=== PATIENT | male | born 1955 | race Caucasian/White ===

== ENCOUNTER 2021-02-23 13:31 | Inpatient (IN) ==
[2021-02-23 14:14] LABS: Basophils # 0.1 10*3/uL (0.0-0.2); Basophils % 0.4 % (0.0-0.8); Eosinophils # 0.1 10*3/uL (0.0-0.87); Eosinophils % 0.8 % (0.00-10.9); Hematocrit 22.3 VOL% (42.0-52.0); Hemoglobin 7.6 GM/DL (14.0-18.0); Immature Granulocytes Absolute 0.12 #; Lymphocytes # 1.5 10*3/uL (1.4-4.0); Lymphocytes % 13.1 % (21.2-54.2); Mean Corpuscular HGB Conc 34.1 GM/DL (32-36); Mean Corpuscular Volume 90.7 FL (87-102); Mean Platelet Volume 9.8 FL (9.6-12.0); Monocytes % 12.9 % (1.7-12.7); NRBC # 0.43 10*3/uL; Neutrophils % 71.8 % (38.7-73.9); Platelet Count 266 T/CUMM (130-400); Red Blood Count 2.46 MC/CUMM (3.8-5.5); White Blood Count 11.6 T/CUMM (4-12)
[2021-02-23] MEDS ORDERED: SODIUM CHLORIDE 0.9% 1,000 ML IV STA ×2 (14:19→16:38)
[2021-02-23 14:30] LABS: Calcium 7.7 MG/DL (8.5-10.1); Osmolality,Calculated 255.8 MOS/KG (273-304)
[2021-02-23 14:32] LABS: Potassium 1.8 MMOL/L (3.5-5.1)
[2021-02-23] MEDS ORDERED: POTASSIUM CHLORIDE RIDER 20 MEQ/100 ML PREMIX IV STA (14:35)
[2021-02-23] MEDS ORDERED: POTASSIUM BICARB EFFERVESCENT 20 MEQ TAB.EFF PO ONE (14:36)
[2021-02-23 14:38] LABS: Band Neutrophils 1 % (0-10); Lymphocytes 13 % (20-55); Nucleated Red Blood Cells 7 (0-5); Platelet Estimate Normal; Polychromasia Few; Segmented Neutrophils 81 % (50-85); Target Cells 1+; Total Cells Counted 100
[2021-02-23 14:39] LABS: Anisocytosis 2+; Macrocytosis 2+; Microcytosis 2+
[2021-02-23] MEDS ORDERED: MAGNESIUM SULF RIDER 1 GM/100 ML PREMIX IV STA (14:54)
[2021-02-23] MEDS ORDERED: THIAMINE 200 MG/2 ML VIAL IV STA (14:54)
[2021-02-23] MEDS ORDERED: SODIUM CHLORIDE 0.9% 1,000 ML IV PRN (15:10)
[2021-02-23] MEDS: POTASSIUM CHLORIDE RIDER 10 MEQ/100 ML PREMIX IV SCH ×2 (15:31→16:37)
[2021-02-23] MEDS ORDERED: POTASSIUM CHLORIDE 20 MEQ TABLET PO ONE ×2 (15:38→21:00)
[2021-02-23] MEDS ORDERED: ONDANSETRON 4 MG/2 ML VIAL IV PRN (15:40)
[2021-02-23] MEDS ORDERED: LORazepam 2 MG/1 ML VIAL IV PRN (15:45)
[2021-02-23] MEDS ORDERED: DICYCLOMINE 10 MG CAPSULE PO PRN (15:45)
[2021-02-23] MEDS ORDERED: MAGNESIUM SULF RIDER 4 GM/100 ML PREMIX IV PRN (15:48)
[2021-02-23] MEDS ORDERED: MAGNESIUM SULF RIDER 2 GM/50 ML PREMIX IV PRN (15:48)
[2021-02-23] MEDS ORDERED: POTASSIUM CHLORIDE RIDER 10 MEQ/100 ML PREMIX IV PRN (15:48)
[2021-02-23 15:53] LABS: INR 1.1; PT Patient Result 11.9 SECS (10.5-12.0)
[2021-02-23] MEDS ORDERED: MAGNESIUM SULF RIDER 4 GM/100 ML PREMIX IV ONE (16:30)
[2021-02-23] MEDS ORDERED: THIAMINE INJ 100 MG, FOLIC ACID INJ 1 MG, MULTIVITAMIN INJ 10 ML in SODIUM CHLORIDE 0.9... IV ONE (16:30)
[2021-02-23 16:47] LABS: Bilirubin,Urine Negative (Negative); Blood, Urine Negative (Negative); Glucose,Urine (UA) Negative (Negative); Ketones,Urine 5 mg/dL (Negative); Nitrite,Urine Negative (Negative); Protein,Urine Negative; RBC,Urine 1 /HPF (0-4); Squamous Epithelial Cell,Urine Occasional /HPF (0-10); Urine Appearance CLEAR (Clear); Urine Color Yellow (Yellow); Urine Specific Gravity 1.012 (1.001-1.035)
[2021-02-23] MEDS: chlordiazePOXIDE 25 MG CAPSULE PO SCH ×2 (17:19→21:04)
[2021-02-23] MEDS: LACTATED RINGERS 1,000 ML IV SCH (18:06)
[2021-02-23] MEDS: PANTOPRAZOLE 40 MG TABLET PO SCH (21:03)
[2021-02-23 21:27] LABS: Sodium 129 MMOL/L (136-145)
[2021-02-23 21:29] LABS: Calcium 7.8 MG/DL (8.5-10.1)
[2021-02-23 21:31] LABS: Albumin 2.5 G/DL (3.4-5.0); Blood Urea Nitrogen 5 MG/DL (7-18); Carbon Dioxide 27 MMOL/L (21-32)
[2021-02-23 21:32] LABS: Glucose 77 MG/DL (74-106); Osmolality,Calculated 253.9 MOS/KG (273-304)
[2021-02-23 21:33] LABS: Alanine Aminotransferase 32 U/L (16-61); Estimated Glom Filtration Rate 133 ML/MIN
[2021-02-23 21:35] LABS: Aspartate Amino Transferase 80 U/L (0-37)
[2021-02-23 21:36] LABS: Alkaline Phosphatase 101 U/L (45-117)
[2021-02-23 21:43] LABS: Potassium 1.8 MMOL/L (3.5-5.1)
[2021-02-24] MEDS: LACTATED RINGERS 1,000 ML IV SCH ×5 (00:20→20:10)
[2021-02-24] MEDS: chlordiazePOXIDE 25 MG CAPSULE PO SCH ×3 (03:50→15:43)
[2021-02-24 04:29] LABS: Basophils % 0.3 % (0.0-0.8); Eosinophils # 0.1 10*3/uL (0.0-0.87); Eosinophils % 0.7 % (0.00-10.9); Immature Granulocytes % 0.8 %; Immature Granulocytes Absolute 0.08 #; Lymphocytes # 1.4 10*3/uL (1.4-4.0); Lymphocytes % 14.7 % (21.2-54.2); Mean Corpuscular HGB Conc 33.9 GM/DL (32-36); Mean Corpuscular Volume 89.5 FL (87-102); Mean Platelet Volume 9.6 FL (9.6-12.0); Monocytes % 12.8 % (1.7-12.7); NRBC # 0.29 10*3/uL; Neutrophils % 70.7 % (38.7-73.9); Platelet Count 256 T/CUMM (130-400); Red Cell Distribution Width 19.5 % (9.3-17.3); White Blood Count 9.8 T/CUMM (4-12)
[2021-02-24 04:40] LABS: Red Blood Count 3.13 MC/CUMM (3.8-5.5)
[2021-02-24 04:41] LABS: Hemoglobin 9.5 GM/DL (14.0-18.0)
[2021-02-24 04:44] LABS: Albumin 2.6 G/DL (3.4-5.0); Bilirubin,Total 3.2 MG/DL (0.2-1.0); Calcium 7.8 MG/DL (8.5-10.1); Osmolality,Calculated 262.4 MOS/KG (273-304); Total Protein 5.8 G/DL (6.4-8.2)
[2021-02-24 04:56] LABS: Potassium 2.5 MMOL/L (3.5-5.1)
[2021-02-24] MEDS: POTASSIUM CHLORIDE 20 MEQ TABLET PO PRN ×7 (05:19→22:30)
[2021-02-24] MEDS ORDERED: PNEUMOCOCCAL VACCINE (13 VALENT) 0.5 ML SYRINGE IM ONE (09:00)
[2021-02-24] MEDS ORDERED: POTASSIUM PHOSPHATE 40 MMOL in SODIUM CHLORIDE 0.9% 250 ML IV ONE (09:00)
[2021-02-24] MEDS: HYDROCORTISONE 100 MG VIAL IV SCH ×2 (09:19→15:43)
[2021-02-24] MEDS: PANTOPRAZOLE 40 MG TABLET PO SCH ×2 (09:19→20:41)
[2021-02-24] MEDS: HydrOXYzine PAMOATE 25 MG CAPSULE PO PRN ×2 (09:20→20:38)
[2021-02-24] MEDS ORDERED: SKIN HEALING OINT (AQUAPHOR) 50 GM TUBE TOP PRN (12:38)
[2021-02-24] MEDS: MENTHOL/ZINC OXIDE OINT 71 GM JAR TOP SCH ×2 (16:23→20:39)
[2021-02-24] MEDS: FLUTICASONE 50 MCG NASAL SPRAY 16 GM BOTTLE BOTH NARES SCH (20:41)
[2021-02-24] MEDS: NICOTINE 14 MG/24 HR PATCH TRANSDERM SCH (21:31)
[2021-02-25] MEDS: POTASSIUM CHLORIDE 20 MEQ TABLET PO PRN ×2 (00:11→14:52)
[2021-02-25] MEDS: HYDROCORTISONE 100 MG VIAL IV SCH ×4 (00:12→23:31)
[2021-02-25] MEDS: chlordiazePOXIDE 25 MG CAPSULE PO SCH ×4 (00:12→23:33)
[2021-02-25 05:58] LABS: Basophils % 0.1 % (0.0-0.8); Hematocrit 26.3 VOL% (42.0-52.0); Hemoglobin 8.8 GM/DL (14.0-18.0); Immature Granulocytes % 1.4 %; Immature Granulocytes Absolute 0.12 #; Lymphocytes # 0.8 10*3/uL (1.4-4.0); Lymphocytes % 9.4 % (21.2-54.2); Mean Corpuscular HGB Conc 33.5 GM/DL (32-36); Mean Corpuscular Volume 90.4 FL (87-102); Mean Platelet Volume 9.5 FL (9.6-12.0); Monocytes % 10.4 % (1.7-12.7); Neutrophils % 78.7 % (38.7-73.9); Platelet Count 267 T/CUMM (130-400); Red Blood Count 2.91 MC/CUMM (3.8-5.5); Red Cell Distribution Width 20.5 % (9.3-17.3); White Blood Count 8.6 T/CUMM (4-12)
[2021-02-25] MEDS: LACTATED RINGERS 1,000 ML IV SCH ×4 (06:10→18:17)
[2021-02-25 06:40] LABS: Albumin 2.4 G/DL (3.4-5.0); Bilirubin,Total 1.2 MG/DL (0.2-1.0); Calcium 7.4 MG/DL (8.5-10.1); Osmolality,Calculated 272.8 MOS/KG (273-304); Potassium 3.3 MMOL/L (3.5-5.1); Total Protein 5.7 G/DL (6.4-8.2)
[2021-02-25] MEDS: FLUTICASONE 50 MCG NASAL SPRAY 16 GM BOTTLE BOTH NARES SCH ×2 (09:25→20:23)
[2021-02-25] MEDS: NICOTINE 14 MG/24 HR PATCH TRANSDERM SCH (09:26)
[2021-02-25] MEDS: MENTHOL/ZINC OXIDE OINT 71 GM JAR TOP SCH ×2 (09:30→20:23)
[2021-02-25] MEDS: PANTOPRAZOLE 40 MG TABLET PO SCH ×2 (09:30→20:23)
[2021-02-25] MEDS: LACTULOSE 20 GM/30 ML UDCUP PO SCH ×2 (10:02→20:23)
[2021-02-25] MEDS ORDERED: POTASSIUM PHOSPHATE 40 MMOL in SODIUM CHLORIDE 0.9% 250 ML IV ONE (11:00)
[2021-02-25] MEDS ORDERED: ETOMIDATE 20 MG/10 ML VIAL IV ONE (14:17)
[2021-02-25] MEDS ORDERED: propofoL 200 MG/20 ML VIAL IV ONE (14:17)
[2021-02-25] MEDS ORDERED: LIDOCAINE 2% 5 ML VIAL ONE (14:17)
[2021-02-25] MEDS: TAMSULOSIN 0.4 MG CAPSULE PO SCH (14:51)
[2021-02-25] MEDS: POTASSIUM CHLORIDE 20 MEQ/15 ML UDCUP PER TUBE PRN (14:52)
[2021-02-25] MEDS: ERGOCALCIFEROL 50,000 UNIT CAPSULE PO SCH (16:56)
[2021-02-26] MEDS: LACTATED RINGERS 1,000 ML IV SCH ×2 (00:31→09:59)
[2021-02-26 04:52] LABS: Basophils % 0.1 % (0.0-0.8); Hematocrit 26.7 VOL% (42.0-52.0); Hemoglobin 8.6 GM/DL (14.0-18.0); Immature Granulocytes % 1.6 %; Immature Granulocytes Absolute 0.13 #; Lymphocytes # 0.9 10*3/uL (1.4-4.0); Lymphocytes % 10.6 % (21.2-54.2); Mean Corpuscular HGB Conc 32.2 GM/DL (32-36); Mean Platelet Volume 9.6 FL (9.6-12.0); Monocytes % 11.3 % (1.7-12.7); NRBC # 0.07 10*3/uL; Neutrophils % 76.4 % (38.7-73.9); Platelet Count 292 T/CUMM (130-400); Red Blood Count 2.87 MC/CUMM (3.8-5.5); Red Cell Distribution Width 21.2 % (9.3-17.3); White Blood Count 8.3 T/CUMM (4-12)
[2021-02-26 05:06] LABS: Albumin 2.4 G/DL (3.4-5.0); Bilirubin,Total 1.1 MG/DL (0.2-1.0); Calcium 7.6 MG/DL (8.5-10.1); Osmolality,Calculated 277.4 MOS/KG (273-304); Potassium 3.7 MMOL/L (3.5-5.1); Total Protein 5.7 G/DL (6.4-8.2)
[2021-02-26] MEDS: FOLIC ACID 1 MG TABLET PO SCH (08:55)
[2021-02-26] MEDS: PANTOPRAZOLE 40 MG TABLET PO SCH (08:55)
[2021-02-26] MEDS: THIAMINE 100 MG TABLET PO SCH (08:55)
[2021-02-26] MEDS: MENTHOL/ZINC OXIDE OINT 71 GM JAR TOP SCH ×2 (08:55→20:18)
[2021-02-26] MEDS: TAMSULOSIN 0.4 MG CAPSULE PO SCH (08:55)
[2021-02-26] MEDS: LACTULOSE 20 GM/30 ML UDCUP PO SCH ×2 (08:55→20:18)
[2021-02-26] MEDS: MULTIVITAMIN (BEROCCA) TABLET PO SCH (08:55)
[2021-02-26] MEDS: NICOTINE 14 MG/24 HR PATCH TRANSDERM SCH (08:55)
[2021-02-26] MEDS: FLUTICASONE 50 MCG NASAL SPRAY 16 GM BOTTLE BOTH NARES SCH ×2 (08:55→20:18)
[2021-02-26] MEDS: chlordiazePOXIDE 25 MG CAPSULE PO SCH (08:55)
[2021-02-27 05:01] LABS: Basophils % 0.3 % (0.0-0.8); Eosinophils % 0.7 % (0.00-10.9); Hemoglobin 9.2 GM/DL (14.0-18.0); Immature Granulocytes % 0.7 %; Immature Granulocytes Absolute 0.04 #; Lymphocytes # 1.3 10*3/uL (1.4-4.0); Mean Corpuscular HGB Conc 32.9 GM/DL (32-36); Mean Platelet Volume 9.5 FL (9.6-12.0); Monocytes % 11.6 % (1.7-12.7); NRBC # 0.02 10*3/uL; Neutrophils % 65.7 % (38.7-73.9); Platelet Count 266 T/CUMM (130-400); Red Blood Count 3.01 MC/CUMM (3.8-5.5); Red Cell Distribution Width 22.1 % (9.3-17.3)
[2021-02-27 05:23] LABS: Albumin 2.3 G/DL (3.4-5.0); Calcium 7.8 MG/DL (8.5-10.1); Osmolality,Calculated 277.3 MOS/KG (273-304); Potassium 3.1 MMOL/L (3.5-5.1); Total Protein 5.2 G/DL (6.4-8.2)
[2021-02-27] MEDS: POTASSIUM CHLORIDE 20 MEQ TABLET PO PRN ×6 (06:42→23:04)
[2021-02-27] MEDS: TAMSULOSIN 0.4 MG CAPSULE PO SCH (09:14)
[2021-02-27] MEDS: FLUTICASONE 50 MCG NASAL SPRAY 16 GM BOTTLE BOTH NARES SCH ×2 (09:14→20:19)
[2021-02-27] MEDS: THIAMINE 100 MG TABLET PO SCH (09:14)
[2021-02-27] MEDS: FOLIC ACID 1 MG TABLET PO SCH (09:14)
[2021-02-27] MEDS: MENTHOL/ZINC OXIDE OINT 71 GM JAR TOP SCH ×2 (09:14→20:19)
[2021-02-27] MEDS: MULTIVITAMIN (BEROCCA) TABLET PO SCH (09:14)
[2021-02-27] MEDS: PANTOPRAZOLE 40 MG TABLET PO SCH (09:14)
[2021-02-27] MEDS: LACTULOSE 20 GM/30 ML UDCUP PO SCH ×3 (09:15→20:19)
[2021-02-27] MEDS: NICOTINE 14 MG/24 HR PATCH TRANSDERM SCH (09:18)
[2021-02-27] MEDS ORDERED: POLYETHYLENE GLYCOL POWDER 255 GM BOTTLE PO ONE (15:00)
[2021-02-28] MEDS: POTASSIUM CHLORIDE 20 MEQ TABLET PO PRN ×2 (01:23→03:07)
[2021-02-28] MEDS ORDERED: MAGNESIUM CITRATE 300 ML BOTTLE PO ONE (06:00)
[2021-02-28 06:48] LABS: Basophils % 0.3 % (0.0-0.8); Eosinophils # 0.1 10*3/uL (0.0-0.87); Eosinophils % 0.6 % (0.00-10.9); Hematocrit 30.3 VOL% (42.0-52.0); Hemoglobin 9.5 GM/DL (14.0-18.0); Immature Granulocytes % 0.7 %; Immature Granulocytes Absolute 0.06 #; Lymphocytes # 1.4 10*3/uL (1.4-4.0); Lymphocytes % 15.9 % (21.2-54.2); Mean Corpuscular HGB Conc 31.4 GM/DL (32-36); Mean Corpuscular Volume 96.8 FL (87-102); Mean Platelet Volume 9.5 FL (9.6-12.0); Monocytes % 8.7 % (1.7-12.7); Neutrophils % 73.8 % (38.7-73.9); Platelet Count 255 T/CUMM (130-400); Red Blood Count 3.13 MC/CUMM (3.8-5.5); Red Cell Distribution Width 22.6 % (9.3-17.3); White Blood Count 8.8 T/CUMM (4-12)
[2021-02-28 07:03] LABS: Calcium 7.9 MG/DL (8.5-10.1); Osmolality,Calculated 276.3 MOS/KG (273-304); Potassium 3.7 MMOL/L (3.5-5.1)
[2021-02-28 07:15] LABS: Albumin 2.1 G/DL (3.4-5.0); Osmolality,Calculated 277.3 MOS/KG (273-304); Total Protein 4.7 G/DL (6.4-8.2)
[2021-02-28] MEDS: PANTOPRAZOLE 40 MG TABLET PO SCH (09:00)
[2021-02-28] MEDS: THIAMINE 100 MG TABLET PO SCH (09:00)
[2021-02-28] MEDS: TAMSULOSIN 0.4 MG CAPSULE PO SCH (09:00)
[2021-02-28] MEDS: LACTULOSE 20 GM/30 ML UDCUP PO SCH ×3 (09:00→21:31)
[2021-02-28] MEDS: MULTIVITAMIN (BEROCCA) TABLET PO SCH (09:00)
[2021-02-28] MEDS: FOLIC ACID 1 MG TABLET PO SCH (09:00)
[2021-02-28] MEDS: NICOTINE 14 MG/24 HR PATCH TRANSDERM SCH (09:06)
[2021-02-28] MEDS: FLUTICASONE 50 MCG NASAL SPRAY 16 GM BOTTLE BOTH NARES SCH ×2 (09:08→21:31)
[2021-02-28] MEDS: MENTHOL/ZINC OXIDE OINT 71 GM JAR TOP SCH ×2 (09:09→21:31)
[2021-02-28] MEDS ORDERED: ALBUTEROL/IPRATROPIUM 3 ML NEB RESP TX ONE (15:28)
[2021-02-28] MEDS ORDERED: LIDOCAINE 2% 5 ML VIAL ONE (15:30)
[2021-02-28] MEDS ORDERED: ETOMIDATE 20 MG/10 ML VIAL IV ONE (15:30)
[2021-02-28] MEDS ORDERED: PHENYLEPHRINE 1 MG/10 ML SYRINGE IV ONE (15:30)
[2021-02-28] MEDS ORDERED: propofoL 200 MG/20 ML VIAL IV ONE (15:30)
[2021-02-28] MEDS ORDERED: methylPREDNISolone SOD SUC 125 MG/2 ML VIAL ONE (15:52)
[2021-02-28] MEDS ORDERED: cefTRIAXone 1,000 MG VIAL IM SCH (18:30)
[2021-02-28 18:51] LABS: ABG HCO3 25.2 MMOL/L (20-26); ABG Oxygen Saturation 49.2 % (95-100); ABG PCO2 48.7 MM HG (35-48); ABG PH 7.367 (7.35-7.45); ABG TCO2 25.5 MMOL/L (23-27)
[2021-02-28 18:55] LABS: ABG PO2 31.8 MM HG (80-95)
[2021-02-28 19:15] LABS: ABG HCO3 25.3 MMOL/L (20-26); ABG PCO2 41.6 MM HG (35-48); ABG PH 7.401 (7.35-7.45); ABG TCO2 23.1 MMOL/L (23-27); Allen Test Positive; Pt O2 Delivery Device Simple Mask
[2021-02-28] MEDS ORDERED: AZITHROMYCIN INJ 250 MG in SODIUM CHLORIDE 0.9% 250 ML IV SCH (20:00)
[2021-02-28] MEDS ORDERED: cefTRIAXone 1,000 MG in SODIUM CHLORIDE 0.9% 100 ML IV SCH (21:00)
[2021-03-01 04:40] LABS: Basophils % 0.1 % (0.0-0.8); Hematocrit 36.7 VOL% (42.0-52.0); Hemoglobin 11.4 GM/DL (14.0-18.0); Immature Granulocytes % 0.3 %; Immature Granulocytes Absolute 0.04 #; Lymphocytes # 0.6 10*3/uL (1.4-4.0); Mean Corpuscular HGB Conc 31.1 GM/DL (32-36); Mean Corpuscular Volume 98.9 FL (87-102); Mean Platelet Volume 9.7 FL (9.6-12.0); Monocytes % 5.1 % (1.7-12.7); Neutrophils % 89.5 % (38.7-73.9); Platelet Count 327 T/CUMM (130-400); Red Blood Count 3.71 MC/CUMM (3.8-5.5); Red Cell Distribution Width 22.5 % (9.3-17.3); White Blood Count 11.5 T/CUMM (4-12)
[2021-03-01 04:56] LABS: Albumin 2.3 G/DL (3.4-5.0); Calcium 8.3 MG/DL (8.5-10.1); Osmolality,Calculated 278.4 MOS/KG (273-304); Potassium 3.7 MMOL/L (3.5-5.1); Total Protein 5.8 G/DL (6.4-8.2)
[2021-03-01 05:06] LABS: Hypochromasia 1+; Microcytosis 1+
[2021-03-01 05:07] LABS: Platelet Estimate Normal; Target Cells Slight
[2021-03-01] MEDS ORDERED: SUCCINYLCHOLINE 200 MG/10 ML VIAL ONE (08:13)
[2021-03-01] MEDS ORDERED: ETOMIDATE 20 MG/10 ML VIAL IV ONE ×3 (08:13→08:19)
[2021-03-01] MEDS ORDERED: SUCCINYLCHOLINE 200 MG/10 ML VIAL IV ONE (08:20)
[2021-03-01] MEDS ORDERED: LACTATED RINGERS 500 ML IV ONE (08:35)
[2021-03-01] MEDS: NOREPINEPHRINE 8 MG in SODIUM CHLORIDE 0.9% 242 ML IV PRN ×4 (08:55→22:13)
[2021-03-01 09:10] LABS: ABG Base Excess 0.1 MMOL/L (-2.5-2.5); ABG HCO3 24.6 MMOL/L (20-26); ABG PCO2 48.5 MM HG (35-48); ABG PH 7.344 (7.35-7.45); ABG TCO2 23.6 MMOL/L (23-27); Allen Test Positive; Pt O2 Delivery Device Ventilator
[2021-03-01 09:14] LABS: Bilirubin,Urine Negative (Negative); Blood, Urine Small mg/dL (Negative); Glucose,Urine (UA) Negative (Negative); Hyaline Casts,Urine 11 /LPF (0-3); Ketones,Urine Negative (Negative); Mucus,Urine Occasional /LPF (Occasional); Nitrite,Urine Negative (Negative); Protein,Urine 30 MG/DL; RBC,Urine 6 /HPF (0-4); Sperm,Urine Many /HPF (Negative); Urine Appearance CLEAR (Clear); Urine Color Amber (Yellow); Urine Specific Gravity 1.014 (1.001-1.035); Urine Urobilinogen < 2.0 EU/DL (0.2-1.0)
[2021-03-01] MEDS: LACTATED RINGERS 1,000 ML IV SCH ×3 (09:30→19:37)
[2021-03-01] MEDS: LACTULOSE 20 GM/30 ML UDCUP PO SCH ×3 (10:35→21:24)
[2021-03-01] MEDS: MULTIVITAMIN (BEROCCA) TABLET PO SCH (10:35)
[2021-03-01] MEDS: TAMSULOSIN 0.4 MG CAPSULE PO SCH (10:35)
[2021-03-01] MEDS: MENTHOL/ZINC OXIDE OINT 71 GM JAR TOP SCH ×2 (10:35→21:32)
[2021-03-01] MEDS: FLUTICASONE 50 MCG NASAL SPRAY 16 GM BOTTLE BOTH NARES SCH ×2 (10:36→21:32)
[2021-03-01] MEDS: FOLIC ACID 1 MG TABLET PO SCH (10:36)
[2021-03-01] MEDS: NICOTINE 14 MG/24 HR PATCH TRANSDERM SCH (10:36)
[2021-03-01] MEDS: THIAMINE 100 MG TABLET PO SCH (10:36)
[2021-03-01] MEDS: PANTOPRAZOLE 40 MG TABLET PO SCH (10:36)
[2021-03-01] MEDS: PIPERACILLIN/TAZOBACTAM 3,375 MG in SODIUM CHLORIDE 0.9% 100 ML IV SCH ×2 (11:01→16:51)
[2021-03-01] MEDS: methylPREDNISolone SOD SUC 40 MG/1 ML VIAL IV SCH ×2 (15:35→21:24)
[2021-03-01] MEDS ORDERED: NOREPINEPHRINE 4 MG/4 ML VIAL IV ONE ×2 (16:39)
[2021-03-02] MEDS: PIPERACILLIN/TAZOBACTAM 3,375 MG in SODIUM CHLORIDE 0.9% 100 ML IV SCH ×3 (00:20→16:55)
[2021-03-02] MEDS: LACTATED RINGERS 1,000 ML IV SCH ×5 (00:20→19:23)
[2021-03-02] MEDS: NOREPINEPHRINE 8 MG in SODIUM CHLORIDE 0.9% 242 ML IV PRN ×3 (02:25→15:06)
[2021-03-02 02:48] LABS: ABG Base Excess 1.7 MMOL/L (-2.5-2.5); ABG Oxygen Saturation 99.9 % (95-100); ABG PCO2 41.2 MM HG (35-48); ABG PH 7.415 (7.35-7.45); ABG TCO2 23.7 MMOL/L (23-27); Allen Test Positive; Pt O2 Delivery Device Ventilator
[2021-03-02 05:23] LABS: Basophils % 0.3 % (0.0-0.8); Eosinophils % 0.2 % (0.00-10.9); Hemoglobin 11.6 GM/DL (14.0-18.0); Immature Granulocytes % 0.8 %; Immature Granulocytes Absolute 0.08 #; Lymphocytes # 0.4 10*3/uL (1.4-4.0); Lymphocytes % 4.4 % (21.2-54.2); Mean Corpuscular HGB Conc 31.4 GM/DL (32-36); Mean Corpuscular Volume 98.4 FL (87-102); Mean Platelet Volume 10.1 FL (9.6-12.0); Neutrophils % 89.3 % (38.7-73.9); Platelet Count 326 T/CUMM (130-400); Red Blood Count 3.76 MC/CUMM (3.8-5.5); Red Cell Distribution Width 22.1 % (9.3-17.3)
[2021-03-02 05:47] LABS: Band Neutrophils 8 % (0-10); Hypochromasia 1+; Lymphocytes 1 % (20-55); Microcytosis 1+; Platelet Estimate Adequate; Segmented Neutrophils 86 % (50-85); Total Cells Counted 100
[2021-03-02 05:58] LABS: Calcium 8.1 MG/DL (8.5-10.1); Osmolality,Calculated 285.1 MOS/KG (273-304); Potassium 4.2 MMOL/L (3.5-5.1)
[2021-03-02] MEDS: methylPREDNISolone SOD SUC 40 MG/1 ML VIAL IV SCH ×3 (05:58→21:33)
[2021-03-02] MEDS: FOLIC ACID 1 MG TABLET PO SCH (08:11)
[2021-03-02] MEDS: THIAMINE 100 MG TABLET PO SCH (08:11)
[2021-03-02] MEDS: TAMSULOSIN 0.4 MG CAPSULE PO SCH ×2 (08:11→08:19)
[2021-03-02] MEDS: PANTOPRAZOLE 40 MG TABLET PO SCH (08:11)
[2021-03-02] MEDS: LACTULOSE 20 GM/30 ML UDCUP PO SCH ×3 (08:11→20:16)
[2021-03-02] MEDS: MULTIVITAMIN (BEROCCA) TABLET PO SCH (08:11)
[2021-03-02] MEDS: FLUTICASONE 50 MCG NASAL SPRAY 16 GM BOTTLE BOTH NARES SCH ×2 (10:43→20:16)
[2021-03-02] MEDS: MENTHOL/ZINC OXIDE OINT 71 GM JAR TOP SCH ×2 (10:43→20:16)
[2021-03-02] MEDS: NICOTINE 14 MG/24 HR PATCH TRANSDERM SCH (10:43)
[2021-03-02] MEDS: PANTOPRAZOLE 40 MG VIAL IV SCH (10:44)
[2021-03-03] MEDS: NOREPINEPHRINE 8 MG in SODIUM CHLORIDE 0.9% 242 ML IV PRN (00:31)
[2021-03-03] MEDS: PIPERACILLIN/TAZOBACTAM 3,375 MG in SODIUM CHLORIDE 0.9% 100 ML IV SCH ×2 (01:30→08:02)
[2021-03-03] MEDS: LACTATED RINGERS 1,000 ML IV SCH ×5 (01:40→22:24)
[2021-03-03 05:00] LABS: ABG Base Excess 4.8 MMOL/L (-2.5-2.5); ABG HCO3 29.4 MMOL/L (20-26); ABG PCO2 43.5 MM HG (35-48); ABG PH 7.447 (7.35-7.45); ABG PO2 64.2 MM HG (80-95); ABG TCO2 30.7 MMOL/L (23-27); Allen Test Positive; Pt O2 Delivery Device Ventilator
[2021-03-03] MEDS: methylPREDNISolone SOD SUC 40 MG/1 ML VIAL IV SCH ×3 (06:12→22:24)
[2021-03-03 06:14] LABS: Basophils % 0.2 % (0.0-0.8); Red Blood Count 3.17 MC/CUMM (3.8-5.5)
[2021-03-03 06:27] LABS: Calcium 8.4 MG/DL (8.5-10.1); Osmolality,Calculated 290.6 MOS/KG (273-304)
[2021-03-03 06:36] LABS: Hematocrit 30.4 VOL% (42.0-52.0); Hemoglobin 9.9 GM/DL (14.0-18.0); Immature Granulocytes % 0.6 %; Lymphocytes # 0.9 10*3/uL (1.4-4.0); Lymphocytes % 5.1 % (21.2-54.2); Mean Corpuscular HGB Conc 32.6 GM/DL (32-36); Mean Corpuscular Volume 95.9 FL (87-102); Monocytes % 5.2 % (1.7-12.7); Neutrophils % 88.9 % (38.7-73.9); Red Cell Distribution Width 21.5 % (9.3-17.3)
[2021-03-03 06:39] LABS: Platelet Count 180 T/CUMM (130-400)
[2021-03-03 06:45] LABS: Hypochromasia 1+; Lymphocytes 5 % (20-55); Microcytosis 1+; Platelet Estimate Adequate; Segmented Neutrophils 88 % (50-85); Total Cells Counted 100
[2021-03-03] MEDS: FOLIC ACID 1 MG TABLET PO SCH (08:03)
[2021-03-03] MEDS: TAMSULOSIN 0.4 MG CAPSULE PO SCH (08:03)
[2021-03-03] MEDS: MULTIVITAMIN (BEROCCA) TABLET PO SCH (08:03)
[2021-03-03] MEDS: NICOTINE 14 MG/24 HR PATCH TRANSDERM SCH (08:03)
[2021-03-03] MEDS: MENTHOL/ZINC OXIDE OINT 71 GM JAR TOP SCH ×2 (08:03→20:33)
[2021-03-03] MEDS: LACTULOSE 20 GM/30 ML UDCUP PO SCH ×3 (08:03→20:32)
[2021-03-03] MEDS: FLUTICASONE 50 MCG NASAL SPRAY 16 GM BOTTLE BOTH NARES SCH ×2 (08:03→20:32)
[2021-03-03] MEDS: THIAMINE 100 MG TABLET PO SCH (08:04)
[2021-03-03] MEDS: PANTOPRAZOLE 40 MG VIAL IV SCH (08:04)
[2021-03-03] MEDS ORDERED: POTASSIUM CHLORIDE 20 MEQ/15 ML UDCUP PER TUBE ONE (08:33)
[2021-03-03] MEDS ORDERED: DEXTROSE 50% 25 GM/50 ML VIAL IV PRN (08:53)
[2021-03-03] MEDS ORDERED: GLUCAGON 1 MG VIAL IM PRN (08:53)
[2021-03-03] MEDS: INSULIN REGULAR 100 UNIT/ML SUBCUT SCH ×2 (13:55→17:57)
[2021-03-03] MEDS: LEVOFLOXACIN INJ 750 MG/150 ML PREMIX IV SCH (17:57)
[2021-03-04] MEDS: INSULIN REGULAR 100 UNIT/ML SUBCUT SCH ×4 (00:10→17:54)
[2021-03-04 04:04] LABS: Basophils % 0.1 % (0.0-0.8); Hematocrit 30.9 VOL% (42.0-52.0); Hemoglobin 9.7 GM/DL (14.0-18.0); Immature Granulocytes % 0.3 %; Immature Granulocytes Absolute 0.04 #; Lymphocytes # 0.5 10*3/uL (1.4-4.0); Lymphocytes % 4.2 % (21.2-54.2); Mean Corpuscular HGB Conc 31.4 GM/DL (32-36); Mean Corpuscular Volume 97.8 FL (87-102); Mean Platelet Volume 10.3 FL (9.6-12.0); Monocytes % 4.5 % (1.7-12.7); Neutrophils % 90.9 % (38.7-73.9); Platelet Count 146 T/CUMM (130-400); Red Blood Count 3.16 MC/CUMM (3.8-5.5); Red Cell Distribution Width 21.5 % (9.3-17.3); White Blood Count 11.6 T/CUMM (4-12)
[2021-03-04 04:17] LABS: Osmolality,Calculated 299.1 MOS/KG (273-304); Potassium 3.1 MMOL/L (3.5-5.1)
[2021-03-04 04:22] LABS: Allen Test Positive; Pt O2 Delivery Device Ventilator
[2021-03-04 04:24] LABS: ABG Base Excess 3.4 MMOL/L (-2.5-2.5); ABG PCO2 42.7 MM HG (35-48); ABG PH 7.434 (7.35-7.45); ABG PO2 94.1 MM HG (80-95); ABG TCO2 29.3 MMOL/L (23-27)
[2021-03-04] MEDS: methylPREDNISolone SOD SUC 40 MG/1 ML VIAL IV SCH ×3 (05:19→21:30)
[2021-03-04 05:31] LABS: Band Neutrophils 3 % (0-10); Lymphocytes 3 % (20-55); Segmented Neutrophils 90 % (50-85); Total Cells Counted 100
[2021-03-04 05:32] LABS: Hypochromasia 2+; Platelet Estimate Normal
[2021-03-04 05:33] LABS: Microcytosis 2+
[2021-03-04] MEDS: LACTATED RINGERS 1,000 ML IV SCH (07:54)
[2021-03-04] MEDS: MENTHOL/ZINC OXIDE OINT 71 GM JAR TOP SCH ×2 (08:35→20:32)
[2021-03-04] MEDS: MULTIVITAMIN (BEROCCA) TABLET PO SCH (08:36)
[2021-03-04] MEDS: POTASSIUM CHLORIDE 20 MEQ/15 ML UDCUP PER TUBE PRN ×4 (08:36→14:59)
[2021-03-04] MEDS: FOLIC ACID 1 MG TABLET PO SCH (08:36)
[2021-03-04] MEDS: PANTOPRAZOLE 40 MG VIAL IV SCH ×2 (08:36→20:33)
[2021-03-04] MEDS: ERGOCALCIFEROL 50,000 UNIT CAPSULE PO SCH (08:36)
[2021-03-04] MEDS: LACTULOSE 20 GM/30 ML UDCUP PO SCH ×3 (08:36→20:32)
[2021-03-04] MEDS: THIAMINE 100 MG TABLET PO SCH (08:36)
[2021-03-04] MEDS: NICOTINE 14 MG/24 HR PATCH TRANSDERM SCH (08:37)
[2021-03-04] MEDS: DEXTROSE 5% 1,000 ML IV SCH (08:38)
[2021-03-04] MEDS: FLUTICASONE 50 MCG NASAL SPRAY 16 GM BOTTLE BOTH NARES SCH ×2 (09:07→20:33)
[2021-03-04] MEDS: LEVOFLOXACIN INJ 750 MG/150 ML PREMIX IV SCH (14:37)
[2021-03-04] MEDS: HydrOXYzine PAMOATE 25 MG CAPSULE PO PRN (20:33)
[2021-03-05] MEDS: INSULIN REGULAR 100 UNIT/ML SUBCUT SCH ×4 (00:19→17:22)
[2021-03-05 03:30] LABS: ABG Base Excess 2.8 MMOL/L (-2.5-2.5); ABG HCO3 26.9 MMOL/L (20-26); ABG Oxygen Saturation 93.3 % (95-100); ABG PCO2 39.6 MM HG (35-48); ABG PO2 69.9 MM HG (80-95); ABG TCO2 28.1 MMOL/L (23-27); Allen Test Positive
[2021-03-05 04:21] LABS: Hematocrit 30.4 VOL% (42.0-52.0); Hemoglobin 9.4 GM/DL (14.0-18.0); Immature Granulocytes % 0.6 %; Immature Granulocytes Absolute 0.07 #; Lymphocytes # 0.8 10*3/uL (1.4-4.0); Lymphocytes % 6.6 % (21.2-54.2); Mean Corpuscular HGB Conc 30.9 GM/DL (32-36); Mean Corpuscular Volume 98.4 FL (87-102); Mean Platelet Volume 10.7 FL (9.6-12.0); Monocytes % 5.4 % (1.7-12.7); Neutrophils % 87.4 % (38.7-73.9); Platelet Count 161 T/CUMM (130-400); Red Blood Count 3.09 MC/CUMM (3.8-5.5); Red Cell Distribution Width 21.1 % (9.3-17.3); White Blood Count 12.1 T/CUMM (4-12)
[2021-03-05 04:54] LABS: Albumin 1.8 G/DL (3.4-5.0); Bilirubin,Total 1.5 MG/DL (0.2-1.0); Calcium 8.1 MG/DL (8.5-10.1); Potassium 3.4 MMOL/L (3.5-5.1); Total Protein 5.2 G/DL (6.4-8.2)
[2021-03-05 04:55] LABS: Hypochromasia Slight; Lymphocytes 12 % (20-55); Platelet Estimate Adequate; Segmented Neutrophils 83 % (50-85); Total Cells Counted 100
[2021-03-05 04:56] LABS: Microcytosis Slight
[2021-03-05] MEDS: POTASSIUM CHLORIDE 20 MEQ/15 ML UDCUP PER TUBE PRN ×3 (05:57→09:53)
[2021-03-05] MEDS: DEXTROSE 5% 1,000 ML IV SCH (06:06)
[2021-03-05] MEDS: methylPREDNISolone SOD SUC 40 MG/1 ML VIAL IV SCH ×3 (06:12→21:30)
[2021-03-05] MEDS: LACTULOSE 20 GM/30 ML UDCUP PO SCH ×3 (08:09→20:17)
[2021-03-05] MEDS: MULTIVITAMIN (BEROCCA) TABLET PO SCH (08:09)
[2021-03-05] MEDS: FOLIC ACID 1 MG TABLET PO SCH (08:10)
[2021-03-05] MEDS: THIAMINE 100 MG TABLET PO SCH (08:10)
[2021-03-05] MEDS: PANTOPRAZOLE 40 MG VIAL IV SCH ×2 (08:10→20:18)
[2021-03-05] MEDS: MENTHOL/ZINC OXIDE OINT 71 GM JAR TOP SCH ×2 (08:11→20:17)
[2021-03-05] MEDS: FLUTICASONE 50 MCG NASAL SPRAY 16 GM BOTTLE BOTH NARES SCH ×2 (08:11→20:17)
[2021-03-05] MEDS: NICOTINE 14 MG/24 HR PATCH TRANSDERM SCH (08:12)
[2021-03-05] MEDS ORDERED: FUROSEMIDE 40 MG/4 ML VIAL IV ONE (09:15)
[2021-03-05] MEDS: LEVOFLOXACIN INJ 750 MG/150 ML PREMIX IV SCH (14:34)
[2021-03-06] MEDS: INSULIN REGULAR 100 UNIT/ML SUBCUT SCH ×4 (00:25→17:58)
[2021-03-06 03:43] LABS: Basophils % 0.1 % (0.0-0.8); Hematocrit 30.9 VOL% (42.0-52.0); Hemoglobin 9.6 GM/DL (14.0-18.0); Immature Granulocytes % 1.1 %; Immature Granulocytes Absolute 0.15 #; Lymphocytes % 6.9 % (21.2-54.2); Mean Corpuscular HGB Conc 31.1 GM/DL (32-36); Mean Corpuscular Volume 97.8 FL (87-102); Mean Platelet Volume 11.3 FL (9.6-12.0); Monocytes % 4.2 % (1.7-12.7); Neutrophils % 87.7 % (38.7-73.9); Platelet Count 186 T/CUMM (130-400); Red Blood Count 3.16 MC/CUMM (3.8-5.5); Red Cell Distribution Width 20.9 % (9.3-17.3); White Blood Count 13.9 T/CUMM (4-12)
[2021-03-06 04:07] LABS: Bilirubin,Total 1.3 MG/DL (0.2-1.0); Calcium 8.6 MG/DL (8.5-10.1); Osmolality,Calculated 294.6 MOS/KG (273-304); Potassium 3.5 MMOL/L (3.5-5.1); Total Protein 5.5 G/DL (6.4-8.2)
[2021-03-06] MEDS: DEXTROSE 5% 1,000 ML IV SCH (04:48)
[2021-03-06] MEDS: methylPREDNISolone SOD SUC 40 MG/1 ML VIAL IV SCH ×3 (05:46→21:02)
[2021-03-06] MEDS: POTASSIUM CHLORIDE 20 MEQ/15 ML UDCUP PER TUBE PRN (05:47)
[2021-03-06] MEDS: FLUTICASONE 50 MCG NASAL SPRAY 16 GM BOTTLE BOTH NARES SCH ×2 (08:21→21:10)
[2021-03-06] MEDS: MENTHOL/ZINC OXIDE OINT 71 GM JAR TOP SCH ×2 (08:21→21:06)
[2021-03-06] MEDS: NICOTINE 14 MG/24 HR PATCH TRANSDERM SCH (08:22)
[2021-03-06] MEDS: PANTOPRAZOLE 40 MG VIAL IV SCH ×2 (08:22→21:01)
[2021-03-06] MEDS: FOLIC ACID 1 MG TABLET PO SCH (08:23)
[2021-03-06] MEDS: MULTIVITAMIN (BEROCCA) TABLET PO SCH (08:23)
[2021-03-06] MEDS: THIAMINE 100 MG TABLET PO SCH (08:23)
[2021-03-06] MEDS: LACTULOSE 20 GM/30 ML UDCUP PO SCH ×3 (08:24→21:01)
[2021-03-06] MEDS: CEFEPIME 1,000 MG in SODIUM CHLORIDE 0.9% 100 ML IV SCH ×3 (08:40→21:00)
[2021-03-06] MEDS: FLUCONAZOLE INJ 200 MG/100 ML PREMIX IV SCH (09:50)
[2021-03-06] MEDS: BUDESONIDE 0.5 MG/2 ML NEB RESP TX SCH ×2 (11:17→19:50)
[2021-03-06] MEDS: ARFORMOTEROL 15 MCG/2 ML NEB RESP TX SCH ×2 (11:17→19:50)
[2021-03-06] MEDS: LEVOFLOXACIN INJ 750 MG/150 ML PREMIX IV SCH (15:20)
[2021-03-07] MEDS: INSULIN REGULAR 100 UNIT/ML SUBCUT SCH ×4 (00:49→18:44)
[2021-03-07] MEDS: CEFEPIME 1,000 MG in SODIUM CHLORIDE 0.9% 100 ML IV SCH ×3 (02:30→15:35)
[2021-03-07 06:55] LABS: Basophils % 0.1 % (0.0-0.8); Hemoglobin 9.4 GM/DL (14.0-18.0); Immature Granulocytes % 1.2 %; Immature Granulocytes Absolute 0.13 #; Lymphocytes # 0.7 10*3/uL (1.4-4.0); Lymphocytes % 6.5 % (21.2-54.2); Mean Corpuscular HGB Conc 31.3 GM/DL (32-36); Mean Platelet Volume 11.1 FL (9.6-12.0); Monocytes % 5.5 % (1.7-12.7); Neutrophils % 86.7 % (38.7-73.9); Platelet Count 237 T/CUMM (130-400); Red Blood Count 3.06 MC/CUMM (3.8-5.5); Red Cell Distribution Width 21.4 % (9.3-17.3); White Blood Count 10.7 T/CUMM (4-12)
[2021-03-07] MEDS: BUDESONIDE 0.5 MG/2 ML NEB RESP TX SCH ×2 (07:12→20:01)
[2021-03-07] MEDS: ARFORMOTEROL 15 MCG/2 ML NEB RESP TX SCH ×2 (07:12→20:01)
[2021-03-07 07:14] LABS: Bilirubin,Total 1.1 MG/DL (0.2-1.0); Calcium 8.5 MG/DL (8.5-10.1); Osmolality,Calculated 290.8 MOS/KG (273-304); Potassium 3.3 MMOL/L (3.5-5.1); Total Protein 5.4 G/DL (6.4-8.2)
[2021-03-07 07:16] LABS: Hypochromasia 1+; Lymphocytes 7 % (20-55); Microcytosis 1+; Platelet Estimate Adequate; Segmented Neutrophils 89 % (50-85); Total Cells Counted 100
[2021-03-07] MEDS: POTASSIUM CHLORIDE 20 MEQ/15 ML UDCUP PER TUBE PRN ×3 (09:25→15:37)
[2021-03-07] MEDS: methylPREDNISolone SOD SUC 40 MG/1 ML VIAL IV SCH ×2 (09:25→20:44)
[2021-03-07] MEDS: MULTIVITAMIN (BEROCCA) TABLET PO SCH (09:26)
[2021-03-07] MEDS: NICOTINE 14 MG/24 HR PATCH TRANSDERM SCH (09:26)
[2021-03-07] MEDS: PANTOPRAZOLE 40 MG VIAL IV SCH ×2 (09:26→20:46)
[2021-03-07] MEDS: LACTULOSE 20 GM/30 ML UDCUP PO SCH ×3 (09:26→20:46)
[2021-03-07] MEDS: MENTHOL/ZINC OXIDE OINT 71 GM JAR TOP SCH ×2 (09:27→20:50)
[2021-03-07] MEDS: FOLIC ACID 1 MG TABLET PO SCH (09:27)
[2021-03-07] MEDS: FLUTICASONE 50 MCG NASAL SPRAY 16 GM BOTTLE BOTH NARES SCH ×2 (09:27→20:50)
[2021-03-07] MEDS: THIAMINE 100 MG TABLET PO SCH (09:27)
[2021-03-07] MEDS: FLUCONAZOLE INJ 200 MG/100 ML PREMIX IV SCH (10:19)
[2021-03-07] MEDS: DEXTROSE 5% 1,000 ML IV SCH ×2 (13:26→17:50)
[2021-03-07] MEDS: LEVOFLOXACIN INJ 750 MG/150 ML PREMIX IV SCH (16:10)
[2021-03-08] MEDS: INSULIN REGULAR 100 UNIT/ML SUBCUT SCH ×4 (00:41→19:28)
[2021-03-08 05:45] LABS: Basophils % 0.2 % (0.0-0.8); Hematocrit 30.2 VOL% (42.0-52.0); Hemoglobin 9.7 GM/DL (14.0-18.0); Immature Granulocytes % 1.2 %; Immature Granulocytes Absolute 0.15 #; Lymphocytes # 0.6 10*3/uL (1.4-4.0); Lymphocytes % 4.6 % (21.2-54.2); Mean Corpuscular HGB Conc 32.1 GM/DL (32-36); Mean Corpuscular Volume 96.5 FL (87-102); Mean Platelet Volume 11.4 FL (9.6-12.0); Monocytes % 3.9 % (1.7-12.7); Neutrophils % 90.1 % (38.7-73.9); Platelet Count 287 T/CUMM (130-400); Red Blood Count 3.13 MC/CUMM (3.8-5.5); Red Cell Distribution Width 21.5 % (9.3-17.3); White Blood Count 12.1 T/CUMM (4-12)
[2021-03-08 06:06] LABS: Hypochromasia 1+; Lymphocytes 5 % (20-55); Microcytosis 1+; Platelet Estimate Adequate; Segmented Neutrophils 89 % (50-85); Total Cells Counted 100
[2021-03-08 06:22] LABS: Albumin 2.2 G/DL (3.4-5.0); Bilirubin,Total 0.9 MG/DL (0.2-1.0); Calcium 8.5 MG/DL (8.5-10.1); Osmolality,Calculated 283.4 MOS/KG (273-304); Potassium 4.2 MMOL/L (3.5-5.1); Total Protein 5.6 G/DL (6.4-8.2)
[2021-03-08] MEDS: DEXTROSE 5% 1,000 ML IV SCH ×2 (06:29→15:18)
[2021-03-08] MEDS: ARFORMOTEROL 15 MCG/2 ML NEB RESP TX SCH ×2 (08:00→19:18)
[2021-03-08] MEDS: BUDESONIDE 0.5 MG/2 ML NEB RESP TX SCH ×2 (08:00→19:18)
[2021-03-08] MEDS: methylPREDNISolone SOD SUC 40 MG/1 ML VIAL IV SCH ×2 (08:52→20:11)
[2021-03-08] MEDS: MULTIVITAMIN (BEROCCA) TABLET PO SCH (08:53)
[2021-03-08] MEDS: PANTOPRAZOLE 40 MG VIAL IV SCH ×2 (08:53→20:13)
[2021-03-08] MEDS: FLUTICASONE 50 MCG NASAL SPRAY 16 GM BOTTLE BOTH NARES SCH ×2 (08:53→20:15)
[2021-03-08] MEDS: NICOTINE 14 MG/24 HR PATCH TRANSDERM SCH (08:53)
[2021-03-08] MEDS: MENTHOL/ZINC OXIDE OINT 71 GM JAR TOP SCH ×2 (08:53→20:11)
[2021-03-08] MEDS: THIAMINE 100 MG TABLET PO SCH (08:53)
[2021-03-08] MEDS: LACTULOSE 20 GM/30 ML UDCUP PO SCH ×3 (08:53→20:11)
[2021-03-08] MEDS: FOLIC ACID 1 MG TABLET PO SCH (08:54)
[2021-03-08] MEDS: FLUCONAZOLE INJ 200 MG/100 ML PREMIX IV SCH (09:02)
[2021-03-08] MEDS: LEVOFLOXACIN INJ 750 MG/150 ML PREMIX IV SCH (15:29)
[2021-03-08] MEDS: HydrOXYzine PAMOATE 25 MG CAPSULE PO PRN (20:11)
[2021-03-09] MEDS: INSULIN REGULAR 100 UNIT/ML SUBCUT SCH ×4 (00:31→17:36)
[2021-03-09 06:20] LABS: Basophils % 0.2 % (0.0-0.8); Hemoglobin 9.7 GM/DL (14.0-18.0); Immature Granulocytes % 2.8 %; Immature Granulocytes Absolute 0.57 #; Lymphocytes % 4.7 % (21.2-54.2); Mean Corpuscular HGB Conc 31.3 GM/DL (32-36); Mean Corpuscular Volume 98.1 FL (87-102); Mean Platelet Volume 10.9 FL (9.6-12.0); Monocytes % 3.3 % (1.7-12.7); Platelet Count 356 T/CUMM (130-400); Red Blood Count 3.16 MC/CUMM (3.8-5.5); Red Cell Distribution Width 22.1 % (9.3-17.3); White Blood Count 20.1 T/CUMM (4-12)
[2021-03-09 06:45] LABS: Hypochromasia 1+; Lymphocytes 7 % (20-55); Microcytosis 1+; Platelet Estimate Adequate; Segmented Neutrophils 90 % (50-85); Total Cells Counted 100
[2021-03-09 06:55] LABS: Albumin 2.3 G/DL (3.4-5.0); Bilirubin,Total 0.9 MG/DL (0.2-1.0); Calcium 8.5 MG/DL (8.5-10.1); Osmolality,Calculated 284.3 MOS/KG (273-304); Potassium 4.2 MMOL/L (3.5-5.1); Total Protein 5.6 G/DL (6.4-8.2)
[2021-03-09] MEDS: BUDESONIDE 0.5 MG/2 ML NEB RESP TX SCH ×2 (07:43→19:40)
[2021-03-09] MEDS: ARFORMOTEROL 15 MCG/2 ML NEB RESP TX SCH ×2 (07:43→19:35)
[2021-03-09] MEDS: methylPREDNISolone SOD SUC 40 MG/1 ML VIAL IV SCH ×2 (08:51→20:16)
[2021-03-09] MEDS: PANTOPRAZOLE 40 MG VIAL IV SCH ×2 (08:51→20:16)
[2021-03-09] MEDS: NICOTINE 14 MG/24 HR PATCH TRANSDERM SCH (08:52)
[2021-03-09] MEDS: THIAMINE 100 MG TABLET PO SCH (08:56)
[2021-03-09] MEDS: FLUTICASONE 50 MCG NASAL SPRAY 16 GM BOTTLE BOTH NARES SCH ×2 (08:56→20:17)
[2021-03-09] MEDS: FOLIC ACID 1 MG TABLET PO SCH (08:56)
[2021-03-09] MEDS: MENTHOL/ZINC OXIDE OINT 71 GM JAR TOP SCH ×2 (08:56→20:17)
[2021-03-09] MEDS: MULTIVITAMIN (BEROCCA) TABLET PO SCH (08:56)
[2021-03-09] MEDS: LACTULOSE 20 GM/30 ML UDCUP PO SCH ×3 (09:05→20:17)
[2021-03-09] MEDS: FLUCONAZOLE INJ 200 MG/100 ML PREMIX IV SCH (09:06)
[2021-03-09] MEDS: PIPERACILLIN/TAZOBACTAM 3,375 MG in SODIUM CHLORIDE 0.9% 100 ML IV SCH ×2 (10:24→17:29)
[2021-03-10] MEDS: INSULIN REGULAR 100 UNIT/ML SUBCUT SCH ×5 (01:39→20:31)
[2021-03-10] MEDS: PIPERACILLIN/TAZOBACTAM 3,375 MG in SODIUM CHLORIDE 0.9% 100 ML IV SCH ×3 (01:56→16:52)
[2021-03-10 05:56] LABS: Basophils % 0.1 % (0.0-0.8); Hematocrit 29.4 VOL% (42.0-52.0); Hemoglobin 9.2 GM/DL (14.0-18.0); Immature Granulocytes % 1.4 %; Immature Granulocytes Absolute 0.28 #; Lymphocytes # 0.9 10*3/uL (1.4-4.0); Lymphocytes % 4.5 % (21.2-54.2); Mean Corpuscular HGB Conc 31.3 GM/DL (32-36); Mean Corpuscular Volume 97.7 FL (87-102); Monocytes % 3.3 % (1.7-12.7); Neutrophils % 90.7 % (38.7-73.9); Platelet Count 434 T/CUMM (130-400); Red Blood Count 3.01 MC/CUMM (3.8-5.5); Red Cell Distribution Width 22.4 % (9.3-17.3); White Blood Count 20.6 T/CUMM (4-12)
[2021-03-10 06:16] LABS: Albumin 2.4 G/DL (3.4-5.0); Bilirubin,Total 0.7 MG/DL (0.2-1.0); Calcium 8.7 MG/DL (8.5-10.1); Osmolality,Calculated 281.4 MOS/KG (273-304); Potassium 4.1 MMOL/L (3.5-5.1); Total Protein 5.6 G/DL (6.4-8.2)
[2021-03-10 06:22] LABS: Lymphocytes 6 % (20-55); Segmented Neutrophils 90 % (50-85); Total Cells Counted 100
[2021-03-10 06:23] LABS: Hypochromasia 1+; Microcytosis 1+; Platelet Estimate Adequate
[2021-03-10] MEDS: BUDESONIDE 0.5 MG/2 ML NEB RESP TX SCH ×2 (07:10→19:45)
[2021-03-10] MEDS: ARFORMOTEROL 15 MCG/2 ML NEB RESP TX SCH ×2 (07:10→19:45)
[2021-03-10] MEDS: FLUCONAZOLE INJ 200 MG/100 ML PREMIX IV SCH (09:38)
[2021-03-10] MEDS: methylPREDNISolone SOD SUC 40 MG/1 ML VIAL IV SCH ×2 (09:40→16:52)
[2021-03-10] MEDS: NICOTINE 14 MG/24 HR PATCH TRANSDERM SCH (09:40)
[2021-03-10] MEDS: PANTOPRAZOLE 40 MG VIAL IV SCH (09:40)
[2021-03-10] MEDS: MENTHOL/ZINC OXIDE OINT 71 GM JAR TOP SCH ×2 (09:41→20:30)
[2021-03-10] MEDS: FLUTICASONE 50 MCG NASAL SPRAY 16 GM BOTTLE BOTH NARES SCH ×2 (09:44→20:31)
[2021-03-10] MEDS: MULTIVITAMIN (BEROCCA) TABLET PO SCH (09:46)
[2021-03-10] MEDS: LACTULOSE 20 GM/30 ML UDCUP PO SCH ×3 (09:46→20:30)
[2021-03-10] MEDS: FOLIC ACID 1 MG TABLET PO SCH (09:46)
[2021-03-10] MEDS: THIAMINE 100 MG TABLET PO SCH (09:46)
[2021-03-10] MEDS: ACETAMINOPHEN 325 MG TABLET PO PRN (13:29)
[2021-03-11] MEDS: PIPERACILLIN/TAZOBACTAM 3,375 MG in SODIUM CHLORIDE 0.9% 100 ML IV SCH ×3 (01:22→17:35)
[2021-03-11] MEDS: methylPREDNISolone SOD SUC 40 MG/1 ML VIAL IV SCH ×2 (01:42→15:23)
[2021-03-11 05:37] LABS: Basophils % 0.1 % (0.0-0.8); Hemoglobin 9.9 GM/DL (14.0-18.0); Immature Granulocytes % 1.3 %; Immature Granulocytes Absolute 0.26 #; Lymphocytes # 0.6 10*3/uL (1.4-4.0); Mean Corpuscular HGB Conc 30.9 GM/DL (32-36); Mean Corpuscular Volume 98.8 FL (87-102); Mean Platelet Volume 10.4 FL (9.6-12.0); Monocytes % 2.1 % (1.7-12.7); Neutrophils % 93.5 % (38.7-73.9); Platelet Count 466 T/CUMM (130-400); Red Blood Count 3.24 MC/CUMM (3.8-5.5); Red Cell Distribution Width 23.2 % (9.3-17.3); White Blood Count 20.1 T/CUMM (4-12)
[2021-03-11 06:18] LABS: Band Neutrophils 1 % (0-10); Hypochromasia 1+; Lymphocytes 1 % (20-55); Segmented Neutrophils 97 % (50-85); Total Cells Counted 100
[2021-03-11 06:19] LABS: Anisocytosis 1+; Microcytosis 1+; Platelet Estimate Increased
[2021-03-11 06:26] LABS: Calcium 8.5 MG/DL (8.5-10.1); Osmolality,Calculated 285.1 MOS/KG (273-304); Potassium 3.9 MMOL/L (3.5-5.1)
[2021-03-11] MEDS: BUDESONIDE 0.5 MG/2 ML NEB RESP TX SCH ×2 (07:08→20:04)
[2021-03-11] MEDS: ARFORMOTEROL 15 MCG/2 ML NEB RESP TX SCH ×2 (07:08→20:03)
[2021-03-11] MEDS: INSULIN REGULAR 100 UNIT/ML SUBCUT SCH ×4 (07:48→21:40)
[2021-03-11] MEDS: MULTIVITAMIN (BEROCCA) TABLET PO SCH (10:23)
[2021-03-11] MEDS: PANTOPRAZOLE 40 MG TABLET PO SCH (10:23)
[2021-03-11] MEDS: THIAMINE 100 MG TABLET PO SCH (10:23)
[2021-03-11] MEDS: FOLIC ACID 1 MG TABLET PO SCH (10:23)
[2021-03-11] MEDS: LACTULOSE 20 GM/30 ML UDCUP PO SCH ×4 (10:23→21:15)
[2021-03-11] MEDS: NICOTINE 14 MG/24 HR PATCH TRANSDERM SCH (10:23)
[2021-03-11] MEDS: FLUTICASONE 50 MCG NASAL SPRAY 16 GM BOTTLE BOTH NARES SCH ×2 (10:25→21:15)
[2021-03-11] MEDS: MENTHOL/ZINC OXIDE OINT 71 GM JAR TOP SCH ×2 (10:25→21:15)
[2021-03-11] MEDS: ERGOCALCIFEROL 50,000 UNIT CAPSULE PO SCH (10:28)
[2021-03-11] MEDS: FLUCONAZOLE INJ 200 MG/100 ML PREMIX IV SCH (10:32)
[2021-03-11] MEDS: ENOXAPARIN 40 MG/0.4 ML SYRINGE SUBCUT SCH (15:22)
[2021-03-12] MEDS: methylPREDNISolone SOD SUC 40 MG/1 ML VIAL IV SCH (01:53)
[2021-03-12] MEDS: PIPERACILLIN/TAZOBACTAM 3,375 MG in SODIUM CHLORIDE 0.9% 100 ML IV SCH ×2 (01:56→10:09)
[2021-03-12 05:23] LABS: Basophils % 0.1 % (0.0-0.8); Eosinophils % 0.1 % (0.00-10.9); Hematocrit 32.3 VOL% (42.0-52.0); Hemoglobin 10.5 GM/DL (14.0-18.0); Immature Granulocytes % 1.2 %; Lymphocytes # 0.8 10*3/uL (1.4-4.0); Lymphocytes % 4.7 % (21.2-54.2); Mean Corpuscular HGB Conc 32.5 GM/DL (32-36); Mean Corpuscular Volume 97.6 FL (87-102); Monocytes % 3.4 % (1.7-12.7); Neutrophils % 90.5 % (38.7-73.9); Platelet Count 485 T/CUMM (130-400); Red Blood Count 3.31 MC/CUMM (3.8-5.5); Red Cell Distribution Width 23.1 % (9.3-17.3); White Blood Count 17.4 T/CUMM (4-12)
[2021-03-12 05:52] LABS: Albumin 2.4 G/DL (3.4-5.0); Bilirubin,Total 0.8 MG/DL (0.2-1.0); Calcium 8.3 MG/DL (8.5-10.1); Osmolality,Calculated 284.1 MOS/KG (273-304); Potassium 4.3 MMOL/L (3.5-5.1); Total Protein 5.6 G/DL (6.4-8.2)
[2021-03-12] MEDS: BUDESONIDE 0.5 MG/2 ML NEB RESP TX SCH ×2 (07:42→20:04)
[2021-03-12] MEDS: ARFORMOTEROL 15 MCG/2 ML NEB RESP TX SCH ×2 (07:42→20:04)
[2021-03-12 07:51] LABS: Lymphocytes 5 % (20-55); Macrocytosis 1+; Platelet Estimate Increased; Segmented Neutrophils 92 % (50-85); Total Cells Counted 100
[2021-03-12] MEDS: INSULIN REGULAR 100 UNIT/ML SUBCUT SCH ×4 (08:08→20:33)
[2021-03-12] MEDS: NICOTINE 14 MG/24 HR PATCH TRANSDERM SCH (10:10)
[2021-03-12] MEDS: THIAMINE 100 MG TABLET PO SCH (10:10)
[2021-03-12] MEDS: FOLIC ACID 1 MG TABLET PO SCH (10:10)
[2021-03-12] MEDS: FLUCONAZOLE INJ 200 MG/100 ML PREMIX IV SCH (10:10)
[2021-03-12] MEDS: MULTIVITAMIN (BEROCCA) TABLET PO SCH (10:10)
[2021-03-12] MEDS: PANTOPRAZOLE 40 MG TABLET PO SCH (10:10)
[2021-03-12] MEDS: FLUTICASONE 50 MCG NASAL SPRAY 16 GM BOTTLE BOTH NARES SCH ×2 (10:11→20:11)
[2021-03-12] MEDS: LACTULOSE 20 GM/30 ML UDCUP PO SCH ×4 (10:11→20:11)
[2021-03-12] MEDS: MENTHOL/ZINC OXIDE OINT 71 GM JAR TOP SCH ×2 (10:11→20:10)
[2021-03-12] MEDS: ENOXAPARIN 40 MG/0.4 ML SYRINGE SUBCUT SCH (14:42)
[2021-03-12] MEDS: AMOXICILLIN/CLAV 875 MG TABLET PO SCH (20:10)
[2021-03-13 04:28] LABS: Basophils % 0.1 % (0.0-0.8); Eosinophils # 0.2 10*3/uL (0.0-0.87); Eosinophils % 1.3 % (0.00-10.9); Hematocrit 31.7 VOL% (42.0-52.0); Hemoglobin 10.2 GM/DL (14.0-18.0); Immature Granulocytes % 0.9 %; Immature Granulocytes Absolute 0.13 #; Lymphocytes # 1.6 10*3/uL (1.4-4.0); Lymphocytes % 11.3 % (21.2-54.2); Mean Corpuscular HGB Conc 32.2 GM/DL (32-36); Mean Corpuscular Volume 96.9 FL (87-102); Mean Platelet Volume 10.6 FL (9.6-12.0); Monocytes % 4.8 % (1.7-12.7); Neutrophils % 81.6 % (38.7-73.9); Platelet Count 470 T/CUMM (130-400); Red Blood Count 3.27 MC/CUMM (3.8-5.5); Red Cell Distribution Width 22.6 % (9.3-17.3); White Blood Count 13.8 T/CUMM (4-12)
[2021-03-13 04:48] LABS: Hypochromasia Slight; Microcytosis Slight; Platelet Estimate Adequate
[2021-03-13 05:01] LABS: Albumin 2.4 G/DL (3.4-5.0); Bilirubin,Total 0.8 MG/DL (0.2-1.0); Osmolality,Calculated 283.8 MOS/KG (273-304); Potassium 3.5 MMOL/L (3.5-5.1); Total Protein 5.3 G/DL (6.4-8.2)
[2021-03-13] MEDS: BUDESONIDE 0.5 MG/2 ML NEB RESP TX SCH ×2 (07:02→19:29)
[2021-03-13] MEDS: ARFORMOTEROL 15 MCG/2 ML NEB RESP TX SCH ×2 (07:02→19:29)
[2021-03-13] MEDS: INSULIN REGULAR 100 UNIT/ML SUBCUT SCH ×4 (07:58→21:34)
[2021-03-13] MEDS: MULTIVITAMIN (BEROCCA) TABLET PO SCH (09:32)
[2021-03-13] MEDS: FOLIC ACID 1 MG TABLET PO SCH (09:33)
[2021-03-13] MEDS: PANTOPRAZOLE 40 MG TABLET PO SCH (09:33)
[2021-03-13] MEDS: AMOXICILLIN/CLAV 875 MG TABLET PO SCH ×2 (09:33→20:09)
[2021-03-13] MEDS: FLUCONAZOLE 200 MG TABLET PO SCH (09:33)
[2021-03-13] MEDS: LACTULOSE 20 GM/30 ML UDCUP PO SCH ×4 (09:33→20:09)
[2021-03-13] MEDS: predniSONE 20 MG TABLET PO SCH (09:33)
[2021-03-13] MEDS: MENTHOL/ZINC OXIDE OINT 71 GM JAR TOP SCH ×2 (09:37→20:09)
[2021-03-13] MEDS: FLUTICASONE 50 MCG NASAL SPRAY 16 GM BOTTLE BOTH NARES SCH ×2 (09:37→20:09)
[2021-03-13] MEDS: THIAMINE 100 MG TABLET PO SCH (09:40)
[2021-03-13] MEDS: NICOTINE 14 MG/24 HR PATCH TRANSDERM SCH (11:32)
[2021-03-13] MEDS: ENOXAPARIN 40 MG/0.4 ML SYRINGE SUBCUT SCH (14:47)
[2021-03-14 04:48] LABS: Basophils % 0.1 % (0.0-0.8); Eosinophils # 0.1 10*3/uL (0.0-0.87); Eosinophils % 1.2 % (0.00-10.9); Hematocrit 31.2 VOL% (42.0-52.0); Hemoglobin 10.1 GM/DL (14.0-18.0); Immature Granulocytes % 0.8 %; Immature Granulocytes Absolute 0.09 #; Lymphocytes # 1.6 10*3/uL (1.4-4.0); Lymphocytes % 13.7 % (21.2-54.2); Mean Corpuscular HGB Conc 32.4 GM/DL (32-36); Mean Platelet Volume 10.6 FL (9.6-12.0); Neutrophils % 79.2 % (38.7-73.9); Platelet Count 444 T/CUMM (130-400); Red Blood Count 3.25 MC/CUMM (3.8-5.5); White Blood Count 11.9 T/CUMM (4-12)
[2021-03-14 05:13] LABS: Albumin 2.4 G/DL (3.4-5.0); Bilirubin,Total 1.3 MG/DL (0.2-1.0); Calcium 8.3 MG/DL (8.5-10.1); Osmolality,Calculated 275.4 MOS/KG (273-304); Potassium 3.4 MMOL/L (3.5-5.1); Total Protein 5.3 G/DL (6.4-8.2)
[2021-03-14] MEDS: ARFORMOTEROL 15 MCG/2 ML NEB RESP TX SCH ×2 (07:10→19:35)
[2021-03-14] MEDS: BUDESONIDE 0.5 MG/2 ML NEB RESP TX SCH ×2 (07:10→19:38)
[2021-03-14] MEDS: INSULIN REGULAR 100 UNIT/ML SUBCUT SCH ×4 (08:56→21:17)
[2021-03-14] MEDS: AMOXICILLIN/CLAV 875 MG TABLET PO SCH ×2 (09:13→21:16)
[2021-03-14] MEDS: MULTIVITAMIN (BEROCCA) TABLET PO SCH (09:13)
[2021-03-14] MEDS: FLUCONAZOLE 200 MG TABLET PO SCH (09:13)
[2021-03-14] MEDS: LACTULOSE 20 GM/30 ML UDCUP PO SCH ×4 (09:13→21:16)
[2021-03-14] MEDS: FOLIC ACID 1 MG TABLET PO SCH (09:14)
[2021-03-14] MEDS: NICOTINE 14 MG/24 HR PATCH TRANSDERM SCH (09:14)
[2021-03-14] MEDS: PANTOPRAZOLE 40 MG TABLET PO SCH (09:14)
[2021-03-14] MEDS: predniSONE 20 MG TABLET PO SCH (09:14)
[2021-03-14] MEDS: THIAMINE 100 MG TABLET PO SCH (09:14)
[2021-03-14] MEDS: FLUTICASONE 50 MCG NASAL SPRAY 16 GM BOTTLE BOTH NARES SCH ×2 (09:15→21:16)
[2021-03-14] MEDS: MENTHOL/ZINC OXIDE OINT 71 GM JAR TOP SCH ×2 (09:16→21:16)
[2021-03-14] MEDS: ENOXAPARIN 40 MG/0.4 ML SYRINGE SUBCUT SCH (13:53)
[2021-03-14] MEDS: POTASSIUM CHLORIDE 20 MEQ/15 ML UDCUP PER TUBE PRN (14:02)
[2021-03-15 06:10] LABS: Calcium 8.4 MG/DL (8.5-10.1); Osmolality,Calculated 277.3 MOS/KG (273-304)
[2021-03-15] MEDS: ARFORMOTEROL 15 MCG/2 ML NEB RESP TX SCH ×2 (07:01→21:00)
[2021-03-15] MEDS: BUDESONIDE 0.5 MG/2 ML NEB RESP TX SCH ×2 (07:07→21:00)
[2021-03-15] MEDS: NICOTINE 14 MG/24 HR PATCH TRANSDERM SCH (08:25)
[2021-03-15] MEDS: FLUCONAZOLE 200 MG TABLET PO SCH (08:25)
[2021-03-15] MEDS: LACTULOSE 20 GM/30 ML UDCUP PO SCH ×4 (08:25→20:48)
[2021-03-15] MEDS: AMOXICILLIN/CLAV 875 MG TABLET PO SCH ×2 (08:25→20:47)
[2021-03-15] MEDS: MULTIVITAMIN (BEROCCA) TABLET PO SCH (08:25)
[2021-03-15] MEDS: predniSONE 20 MG TABLET PO SCH (08:25)
[2021-03-15] MEDS: THIAMINE 100 MG TABLET PO SCH (08:25)
[2021-03-15] MEDS: FOLIC ACID 1 MG TABLET PO SCH (08:26)
[2021-03-15] MEDS: PANTOPRAZOLE 40 MG TABLET PO SCH (08:26)
[2021-03-15] MEDS: FLUTICASONE 50 MCG NASAL SPRAY 16 GM BOTTLE BOTH NARES SCH ×2 (08:26→20:48)
[2021-03-15] MEDS: INSULIN REGULAR 100 UNIT/ML SUBCUT SCH ×4 (12:32→20:48)
[2021-03-15] MEDS ORDERED: TUBERCULIN SKIN TEST 0.1 ML SYRINGE INTRADERM ONE (13:00)
[2021-03-15] MEDS: MENTHOL/ZINC OXIDE OINT 71 GM JAR TOP SCH ×2 (15:49→20:48)
[2021-03-15] MEDS: ENOXAPARIN 40 MG/0.4 ML SYRINGE SUBCUT SCH (15:49)
[2021-03-15] MEDS: ACETAMINOPHEN 325 MG TABLET PO PRN (20:47)
[2021-03-16] MEDS: ARFORMOTEROL 15 MCG/2 ML NEB RESP TX SCH (07:59)
[2021-03-16] MEDS: BUDESONIDE 0.5 MG/2 ML NEB RESP TX SCH (07:59)
[2021-03-16] MEDS: INSULIN REGULAR 100 UNIT/ML SUBCUT SCH (09:00)
[2021-03-16] MEDS: AMOXICILLIN/CLAV 875 MG TABLET PO SCH (09:01)
[2021-03-16] MEDS: FLUCONAZOLE 200 MG TABLET PO SCH (09:01)
[2021-03-16] MEDS: LACTULOSE 20 GM/30 ML UDCUP PO SCH (09:01)
[2021-03-16] MEDS: predniSONE 20 MG TABLET PO SCH (09:01)
[2021-03-16] MEDS: PANTOPRAZOLE 40 MG TABLET PO SCH (09:02)
[2021-03-16] MEDS: MULTIVITAMIN (BEROCCA) TABLET PO SCH (09:02)
[2021-03-16] MEDS: FOLIC ACID 1 MG TABLET PO SCH (09:02)
[2021-03-16] MEDS: NICOTINE 14 MG/24 HR PATCH TRANSDERM SCH (09:02)
[2021-03-16] MEDS: THIAMINE 100 MG TABLET PO SCH (09:02)
[2021-03-16] MEDS: MENTHOL/ZINC OXIDE OINT 71 GM JAR TOP SCH (09:06)
[2021-03-16] MEDS: FLUTICASONE 50 MCG NASAL SPRAY 16 GM BOTTLE BOTH NARES SCH (09:06)
[2021-03-16] MEDS: POTASSIUM CHLORIDE 20 MEQ/15 ML UDCUP PER TUBE PRN ×2 (10:42→12:11)
[2021-03-16 12:10] VITALS: BP 132/88
== END 2021-03-16 13:45 | disposition hospice, inpatient (51) | DRG 432 ==
LOC: N.ED 13:31 → SUATTDRO 15:40 → N.EDINP 15:40 → N.CC 16:55 → N.4E 02-25 15:47 → N.CC 03-01 07:54 → N.4E 03-06 15:37
PROVIDERS: ADMIT Family Medicine; ATTEND Internal Medicine